=== PATIENT | female | born 1960 | race Caucasian/White ===

== ENCOUNTER 2023-05-05 13:38 | Day surgery (SDC) | payer BC, SELFPAY ==
--- NOTE | 2023-05-05 13:47 | US_ITS ---
[address] [address] Patient Name: MILDRED RAMOS MRN: [id number] date: 1960 Sex: F Assigned Patient Location: US Current Patient Location: US Accession/Order Number: [id number] Exam Date: 05/05/2023 14:00 Report Date: 05/05/2023 15:19 At the request of: OCHOA BRUNSON Procedure: US biopsy thyroid EXAMINATION: US biopsy thyroid, US biopsy FNA add lesion HISTORY: Thyroid Nodule COMPARISON: Ultrasound thyroid 04/12/2023 TECHNIQUE: After obtaining informed consent, ultrasound-guided fine needle aspiration was performed in the usual sterile manner. FINDINGS: IMAGING: Ultrasound. BIOPSY NEEDLE: 25-gauge; 3 separate passes LOCATION: Superior right lobe nodule; inferior left lobe nodule SPECIMEN TYPE: Cellular tissue. LOCAL ANESTHETIC: Buffered Xylocaine. COMPLICATIONS: None. LABORATORY: Prepared slide smears and washings for cell block evaluation. OTHER: Negative. PATHOLOGY: Pending. An addendum will be added when results are available. US/US biopsy thyroid IMPRESSION: 1. Uneventful ultrasound guided fine needle aspiration (FNA). 2. Pathology results are pending. Electronically authenticated by: ROSANGELA MORALES Date: 05/05/2023 15:19
[2023-05-05 13:55] VITALS: BP 136/92; PULSE 74; O2SAT 94
--- NOTE | 2023-05-05 13:55 | US_ITS ---
[address] [address] Patient Name: MILDRED RAMOS MRN: [id number] date: 1960 Sex: F Assigned Patient Location: US Current Patient Location: US Accession/Order Number: [id number] Exam Date: 05/05/2023 14:25 Report Date: 05/05/2023 15:19 At the request of: OCHOA BRUNSON Procedure: US biopsy FNA add lesion EXAMINATION: US biopsy thyroid, US biopsy FNA add lesion HISTORY: Thyroid Nodule COMPARISON: Ultrasound thyroid 04/12/2023 TECHNIQUE: After obtaining informed consent, ultrasound-guided fine needle aspiration was performed in the usual sterile manner. FINDINGS: IMAGING: Ultrasound. BIOPSY NEEDLE: 25-gauge; 3 separate passes LOCATION: Superior right lobe nodule; inferior left lobe nodule SPECIMEN TYPE: Cellular tissue. LOCAL ANESTHETIC: Buffered Xylocaine. COMPLICATIONS: None. LABORATORY: Prepared slide smears and washings for cell block evaluation. OTHER: Negative. PATHOLOGY: Pending. An addendum will be added when results are available. US/US biopsy FNA add lesion IMPRESSION: 1. Uneventful ultrasound guided fine needle aspiration (FNA). 2. Pathology results are pending. Electronically authenticated by: ROSANGELA MORALES Date: 05/05/2023 15:19
[2023-05-05] MEDS: LIDOCAINE HCL 10 ML, SODIUM BICARBONATE 1 MEQ INJ (14:40)
== END 2023-05-05 15:00 | disposition home or self-care (01) ==
LOC: US 13:39
PROVIDERS: Radiology Diagnostic Radiology; Visit Provider Otolaryngology
DX: E04.1 Nontoxic single thyroid nodule (principal)
CPT/HCPCS: 10005; 10006; 88173